=== PATIENT | male | born 1990 | race Caucasian/White ===

== ENCOUNTER 2020-05-21 11:23 | Emergency (ER) | payer OTHER ==
[~2020-05-21] VITALS: Ht 182.9 cm; Wt 81.7 kg
[2020-05-21] MEDS ORDERED: Norco 5-325 Ta1 EACH PO (11:41)
== END 2020-05-21 11:49 | disposition home or self-care (01) ==
LOC: ER 11:23
DX: M46.1 Sacroiliitis, not elsewhere classified (principal); Z87.828 Personal history of other (healed) physical injury and trauma
CPT/HCPCS: 99283